=== PATIENT | male | born 1960 | race Caucasian/White ===

== ENCOUNTER 2018-02-13 08:11 | Day surgery (SDC) | payer OTHER ==
[~2018-02-13] VITALS: Ht 175.3 cm; Wt 109.0 kg
[~2018-02-13 08:11] MED LIST: ENOX40I SC; IBUP800; IBUP800 PO; LISI20 PO; OXYC5 PO; PROM25 PO
== END 2018-02-13 10:10 | disposition home or self-care (01) ==
LOC: ORSCSDS 08:11
PROVIDERS: Internal Medicine Gastroenterology
PROC: 0DJD8ZZ Inspection of Lower Intestinal Tract, Via Natural or Artificial Opening Endoscopic (ICD-10-PCS; principal; 2018-02-13 09:15)
DX: Z12.11 Encounter for screening for malignant neoplasm of colon (principal); K57.30 Diverticulosis of large intestine without perforation or abscess without bleeding; K64.8 Other hemorrhoids; I10 Essential (primary) hypertension; G47.33 Obstructive sleep apnea (adult) (pediatric); E66.9 Obesity, unspecified; Z68.35 Body mass index [BMI] 35.0-35.9, adult; Z79.899 Other long term (current) drug therapy
CPT/HCPCS: J2250

== ENCOUNTER 2021-04-25 09:06 | Day surgery (SDC) | payer OTHER ==
[~2021-04-25] VITALS: Ht 177.8 cm; Wt 104.8 kg
[~2021-04-25 09:06] MED LIST changes: +IBU800 M1 PO
--- NOTE | 2021-04-25 09:55 | NUR ---
Ambulatory in Day Surgery Patient confirms NPO status and agrees with scheduled surgery. Patient reports completing Chlorhexadine shower X2 prior to admission to hospital. History, Chart, Medications and Allergies reviewed before start of procedure. Lungs clear T/O to Auscultation.
--- NOTE | 2021-04-25 14:34 | NUR ---
PATIENT ARRIVED ON UNIT FROM PACU AT AROUND 1340 TODAY 04/25/21. HE IS POD 0 OF A LEFT TOTAL HIP REPLACEMENT. PATIENT IS ALERT AND ORIENTED X4. VS ARE WNL AND IS ON RA. FOR PAIN HE HAS RECIEVED PO MARY AND IV TORADOL. PATIENT DENIES NUMBNESS AND TINGLING IN EXTREMITIES. HE IS ABLE TO WIGGLE FINGERS AND TOES. PEDAL PULSES ARE STRONG AND SKIN IS WARM TO TOUCH. THE 3 FOAM WITH GAUZE DRESSING ON HIS LEFT HIP ARE C/D/I. PATIENTS IS IN THE ROOM. HE IS CURRENTLY DRINKING SOME WATER AND EATING SOME APPLESAUCE. CALL LIGHT WITHIN REACH.
--- NOTE | 2021-04-25 15:46 | NUR ---
SHIFT SUMMARY: POD 0 LEFT TOTAL HIP PATIENT IS ALERT AND ORIENTED X4. VS ARE WNL AND IS ON RA. PAIN IS MANAGED WITH IV TORADOL, 2 MARY, AND TYLENOL. PATIENT HAS 3X FOAM WITH GAUZE ON THE LEFT HIP. ALL ARE C/D/I. PATIENT IS ABLE TO WIGGLE TOES AND FINGERS. CAP REFILL <3 SECONDS. HE IS A SBA WITH FWW AND GAIT BELT WITH AMBULATION. CALLS APPROPRIATELY. CALL LIGHT WITHIN REACH. IS CURRENTLY IN THE ROOM. PATIENT IS VOIDING AND TOLERATING PO INTAKE. PATIENT DENIES NAUSEA AT THIS TIME. PATIENT DID NOT WANT TO WORK WITH THERAPY TODAY, SO HE WILL BE CHECKED OUT AGAIN TOMORROW TO HOPEFULLY BE DISCHARGED HOME.
[2021-04-26 04:41] LABS: BASOPHILS ABSOLUTE AUTO 0.02 K/mm3 (0.00-0.23); BASOPHILS PERCENT AUTO 0 % (0-2); EOSINOPHILS ABSOLUTE AUTO 0.01 K/mm3 (0.00-0.68); EOSINOPHILS PERCENT AUTO 0 % (0-6); Hematocrit 33.9 % (37.0-53.0); Hemoglobin 11.2 g/dL (13.5-17.5); IMMATURE GRAN ABSOLUTE AUTO 0.04 K/mm3 (0.00-0.10); IMMATURE GRAN PERCENT AUTO 0 % (0-1); LYMPHOCYTES ABSOLUTE AUTO 1.31 K/mm3 (0.84-5.20); LYMPHOCYTES PERCENT AUTO 11 % (21-46); MONOCYTES ABSOLUTE AUTO 0.88 K/mm3 (0.16-1.47); MONOCYTES PERCENT AUTO 7 % (4-13); Mean Corpuscular HGB 30.4 pg (26.0-34.0); Mean Corpuscular Volume 92 fL (80-100); Mean Platelet Volume 10.3 fL (9.1-12.4); NEUTROPHILS ABSOLUTE AUTO 9.94 K/mm3 (1.96-9.15); NEUTROPHILS PERCENT AUTO 82 % (41-73); Platelet Count 209 K/mm3 (150-400); RDW Coefficient Variation 12.6 % (11.7-14.2); RDW Standard Deviation 42.1 fL (35.1-46.3); Red Blood Cell Count 3.69 M/mm3 (4.30-5.90)
[2021-04-26 04:59] LABS: Anion Gap 5 mmol/L (6-16); Blood Urea Nitrogen 23 mg/dL (8-24); Bun/Creatinine Ratio 30.4 (12.0-20.0); CO2, Blood 27 mmol/L (21-32); Calcium, Blood 7.8 mg/dL (8.5-10.1); Chloride, Blood 103 mmol/L (98-108); Creatinine, Blood 0.76 mg/dL (0.60-1.20); Glomerular Filtration Rate >60 (60-); Glucose, Blood 114 mg/dL (70-99); Magnesium, Blood 2.1 mg/dL (1.6-2.4); Potassium, Blood 3.9 mmol/L (3.5-5.5); Sodium, Blood 135 mmol/L (136-145)
--- NOTE | 2021-04-26 07:19 | NUR ---
SHIFT SUMMARY POD 1 L SABRINA, A/O X4, VSS, TOLERATING PO, AMBULATING, VOIDING, PAIN WELL MANAGED PER EMAR, NO ACUTE EVENTS THIS SHIFT. CALL LIGHT IN REACH, REPORT GIVEN TO DAY RN.
--- NOTE | 2021-04-26 11:07 | NUR ---
0700-recvd report from previous rn Simeon, pt lying in bed, bed in lowest position, bed rails up x 2, call light within reach 0720-dr gonzales rounding on pt, dresing change 0830- pt up in recliner eating breakfast 1045- pt working with physical therapy
[2021-04-26] MEDS ORDERED: Aspir 8181 MG PO (11:59)
[2021-04-26] MEDS ORDERED: OXAYDO5 M1 PO (12:00)
[2021-04-26] MEDS ORDERED: PROM25 PO (12:03)
[2021-04-26] MEDS ORDERED: SULTRIDS PO (12:03)
--- NOTE | 2021-04-26 12:30 | NUR ---
pt and spouse provided with discharge instructions, of which they states understanding. peripheral IV removed WNL. pt provided with dressings x 2. pt's belongings transported to awaiting vehicle by spouse. pt transported via wheelchair. pt's has picked up written prescriptions
== END 2021-04-26 12:28 | disposition home or self-care (01) ==
LOC: ORSCMMR 09:06 → SURS 13:32 → ORSCMMR 04-26 12:28 → SURS 04-26 12:28 → ORSCMMR 05-02 11:15 → ORD 05-02 11:15
PROVIDERS: Orthopaedic Surgery
PROC: 0SRB0JA Replacement of Left Hip Joint with Synthetic Substitute, Uncemented, Open Approach (ICD-10-PCS; principal; 2021-04-25 11:00)
PROC: 8E0YXBZ Computer Assisted Procedure of Lower Extremity (ICD-10-PCS; principal; 2021-04-25 11:00)
DX: M16.12 Unilateral primary osteoarthritis, left hip (principal); I10 Essential (primary) hypertension; G47.33 Obstructive sleep apnea (adult) (pediatric); Z79.82 Long term (current) use of aspirin; Z79.899 Other long term (current) drug therapy
CPT/HCPCS: 36415; 72170; 80048; 83735; 85025; 97110; 97110-CQ; 97116; 97116-CQ; 97162; 97165; 97530-CQ; 97535; A9270; C1713; C1776; J0171; J0690; J0735; J1100; J1200; J1885; J2250; J2405; J2704; J2795; J3010; J3370; J7120